=== PATIENT | male | born 1965 | race Caucasian/White ===

== ENCOUNTER 2021-10-16 22:25 | Observation (INO) | payer OTHER ==
[2021-10-16 22:33] VITALS: BMI 25.5
[2021-10-16] MEDS ORDERED: DIPHTH,PERTUSS(ACELL),TET 0.5 ML DISP.SYRIN IM ONE ×2 (22:37→23:26)
[2021-10-16 23:03] LABS: BASO % 0.6 % (0-2.0); EOS % 3.6 % (0-4.5); HEMOGLOBIN 10.5 GM/dL (11.7-16.9); LYMPH % 34.5 % (8-40); MCH 30.7 pg (25.7-33.7); MCHC 33.8 g/dl (32.0-35.9); MEAN CELL VOLUME 90.8 fl (80-96); MEAN PLT VOLUME 8.3 fl (7.5-11.1); MONO % 9.6 % (3.8-10.2); NEUT % 51.7 % (42.8-82.8); PLATELET COUNT 156 10^3/uL (134-434); RBC 3.41 M/mm3 (4.00-5.60); RDW 14.5 % (11.9-15.9); WHITE BLOOD COUNT 6.7 K/mm3 (4.0-10.0)
[2021-10-16 23:12] LABS: ACTIVATED PTT 32.6 SECONDS (25.2-36.5)
[2021-10-16 23:27] LABS: CALCIUM 8.5 mg/dL (8.5-10.1)
[2021-10-16 23:28] LABS: BLOOD UREA NITROGEN 9.7 mg/dL (7-18); MAGNESIUM 2.2 mg/dL (1.8-2.4)
[2021-10-16 23:31] LABS: CREATININE 1.1 mg/dL (0.55-1.3)
[2021-10-16 23:32] LABS: BILIRUBIN,TOTAL 0.6 mg/dL (0.2-1)
[2021-10-16 23:33] LABS: TOT PROT 6.7 g/dl (6.4-8.2)
[2021-10-16 23:36] LABS: N-TERMINAL BNP 92.4 pg/ml (5-125)
[2021-10-16] MEDS ORDERED: CEFTRIAXONE 1 GM/50 ML BAG ONE (23:39)
[2021-10-17 00:13] LABS: INR 1.11 (0.83-1.09); PROTHROMBIN TIME (PATIENT) 12.8 SEC (9.7-13.0)
[2021-10-17 08:32] LABS: HEMATOCRIT 34.4 % (35.4-49); HEMOGLOBIN 11.6 GM/dL (11.7-16.9); MCH 30.9 pg (25.7-33.7); MCHC 33.7 g/dl (32.0-35.9); MEAN CELL VOLUME 91.7 fl (80-96); MEAN PLT VOLUME 8.4 fl (7.5-11.1); PLATELET COUNT 160 10^3/uL (134-434); RBC 3.76 M/mm3 (4.00-5.60); WHITE BLOOD COUNT 5.5 K/mm3 (4.0-10.0)
[2021-10-17 09:09] LABS: CALCIUM 8.5 mg/dL (8.5-10.1)
[2021-10-17 09:10] LABS: ALBUMIN 2.7 g/dl (3.4-5.0); BLOOD UREA NITROGEN 9.5 mg/dL (7-18)
[2021-10-17 09:11] LABS: TOT PROT 6.2 g/dl (6.4-8.2)
[2021-10-17 09:13] LABS: CREATININE 0.9 mg/dL (0.55-1.3)
[2021-10-17 09:14] LABS: BILIRUBIN,TOTAL 0.7 mg/dL (0.2-1)
[2021-10-17] MEDS: metFORMIN HCL 500 MG TABLET (FP) PO SCH ×2 (09:18→21:24)
[2021-10-17 09:21] LABS: ANISOCYTOSIS 0; HELMET CELLS 0; HOWELL-JOLLY BODIES 0; MACROCYTOSIS 0; OVALOCYTE 0; ROULEAU 0; SICKELED CELLS 0; TARGET CELLS 0; TEAR DROP CELLS 0; TOXIC GRANULATION 0
[2021-10-17] MEDS ORDERED: FUROSEMIDE 20 MG TABLET (FP) PO SCH (10:00)
[2021-10-18] MEDS ORDERED: metFORMIN HCL 500 MG TABLET (FP) PO SCH (09:31)
[2021-10-18] MEDS: POTASSIUM CHLORIDE TABS 20 MEQ TABLET.ER (FP) PO SCH (10:10)
[2021-10-18] MEDS: FUROSEMIDE 20 MG TABLET (FP) PO SCH (10:10)
[2021-10-18] MEDS: metFORMIN HCL 500 MG TABLET (FP) PO SCH ×2 (10:10→18:02)
[2021-10-18] MEDS: CITALOPRAM HYDROBROMIDE 10 MG TABLET PO SCH (11:40)
[2021-10-18] MEDS: DIVALPROEX NA *ER* EXTEND REL 500 MG TABLET.SA (FP) PO SCH ×2 (14:08→21:21)
[2021-10-18] MEDS: CARBIDOPA/LEVODOPA 10/100 TABLET (FP) PO SCH ×2 (14:09→21:21)
[2021-10-18] MEDS ORDERED: VALPROATE SODIUM 500 MG/5 ML VIAL IVPB ONE (22:49)
[2021-10-19] MEDS ORDERED: VALPROATE SODIUM INJECTION 1,000 MG in SODIUM CHLORIDE 100 ML IVPB ONE (00:30)
[2021-10-19] MEDS: metFORMIN HCL 500 MG TABLET (FP) PO SCH (06:06)
[2021-10-19] MEDS: CARBIDOPA/LEVODOPA 10/100 TABLET (FP) PO SCH (06:06)
[2021-10-19 08:55] VITALS: BP 92/55; PULSE 82; TEMP 97.6
[2021-10-19] MEDS: CITALOPRAM HYDROBROMIDE 10 MG TABLET PO SCH (10:56)
[2021-10-19] MEDS: DIVALPROEX NA *ER* EXTEND REL 500 MG TABLET.SA (FP) PO SCH (10:56)
[2021-10-19] MEDS: POTASSIUM CHLORIDE TABS 20 MEQ TABLET.ER (FP) PO SCH (10:56)
[2021-10-19] MEDS: FUROSEMIDE 20 MG TABLET (FP) PO SCH (10:56)
== END 2021-10-19 14:28 ==
LOC: JER 22:25 → JERBED 10-17 00:29 → J4W 10-17 05:25
PROVIDERS: ADMIT Internal Medicine; ATTEND Family Medicine
PROC: 0HQ1XZZ Repair Face Skin, External Approach (ICD-10-PCS; principal; 2021-10-17)
DX: R55 Syncope and collapse (principal); S01.81XA Laceration without foreign body of other part of head, initial encounter; W18.39XA Other fall on same level, initial encounter; Z91.81 History of falling; Y93.89 Activity, other specified; Y92.129 Unspecified place in nursing home as the place of occurrence of the external cause; I11.0 Hypertensive heart disease with heart failure; I50.9 Heart failure, unspecified; E78.5 Hyperlipidemia, unspecified; D64.9 Anemia, unspecified; E11.9 Type 2 diabetes mellitus without complications; F41.9 Anxiety disorder, unspecified; G20 Parkinson's disease; G93.49 Other encephalopathy; M47.12 Other spondylosis with myelopathy, cervical region; Z20.822 Contact with and (suspected) exposure to COVID-19; Z86.16 Personal history of COVID-19; Z79.84 Long term (current) use of oral hypoglycemic drugs
CPT/HCPCS: 12013; 36415; 70450-TC; 70486-TC; 71045-TC-FY; 72125-TC; 80053; 80061; 80164; 82550; 82962; 83735; 83880; 84443; 84484; 85025; 85610; 85730; 86850; 86900; 86901; 90715; 93005; 93010; 93306-TC; 97116-GP; 97162-GP; 99285-25; C9803-CS; G0378; U0003; U0005